=== PATIENT | female | born 1970 | race Caucasian/White ===

== ENCOUNTER → 2022-04-09 16:35 | Outpatient (CLI) | payer OTHER, BC, SELFPAY ==
--- NOTE | 2022-04-09 | DI.CT.S_ITS ---
PROCEDURE: CT ABDOMEN PELVIS W CON INDICATIONS: LLQ PAIN ON/OFF FEVER TECHNIQUE: After the administration of oral and IV contrast, axial sections were acquired from the lung bases to the pubic symphysis. Coronal and sagittal reformats were performed. For radiation dose reduction, the following was used: automated exposure control, adjustment of mA and/or kV according to patient size. COMPARISON: None. FINDINGS: Image quality: Excellent. Lung bases: A small benign calcified granuloma is seen in the central right lung base. Heart: No significant findings. ABDOMEN: Liver: Unremarkable. Gallbladder: Unremarkable. Biliary ducts: Unremarkable. Pancreas: Unremarkable. Spleen: Unremarkable. Adrenal Glands: Unremarkable. Kidneys and Ureters: Unremarkable. Stomach and Bowel: Small hiatal hernia. Small and large bowel loops are unremarkable. Peritoneum: No abnormal intraperitoneal fluid. No free air. Ventral Wall: No hernia. Abdominal Nodes: No retroperitoneal or mesenteric adenopathy by size criteria. Vessels: Aorta and inferior vena cava are normal in size. PELVIS: Pelvic Organs: Status post hysterectomy. A small oval fluid attenuation lesion is seen in the left pelvis measuring 1.5 x 1.0 cm (72/2) that may represent a small seroma or lymphocele. No significant enhancement or associated fat stranding is seen. Ovaries are symmetric in size. Bladder: Unremarkable. Pelvic Nodes: No enlarged lymph nodes. Miscellaneous: No inguinal hernias are seen. Bones: Multilevel mild degenerative changes are seen in the spine. IMPRESSION: 1. No acute abnormality identified in the abdomen or pelvis to account for the reported symptoms. 2. Nonspecific 1.5 cm oval fluid collection in the left pelvis near the hysterectomy site is of uncertain etiology, but is likely benign. Differential considerations include a benign seroma or lymphocele versus less likely abscess, necrotic lymph node, or other etiology. A pelvic MRI with and without contrast could be obtained for further evaluation if indicated clinically. Dictated by: Hayes Huizar M.D. on 04/09/2022 at 17:59 Approved by: Hayes Huizar M.D. on 04/09/2022 at 18:07
== END ==
PROVIDERS: Referring Provider Internal Medicine; Visit Provider Internal Medicine
DX: R10.32 Left lower quadrant pain (principal); R50.9 Fever, unspecified; K44.9 Diaphragmatic hernia without obstruction or gangrene; Z90.710 Acquired absence of both cervix and uterus
CPT/HCPCS: 74177; Q9967

== ENCOUNTER → 2022-04-18 09:39 | Outpatient (CLI) | payer OTHER, BC, SELFPAY ==
--- NOTE | 2022-04-18 09:41 | DI.MRI.S_ITS ---
PROCEDURE: MR PELVIS WO/W CON INDICATIONS: Fluid collection seen on CT TECHNIQUE: Coronal HASTE, sagittal breath-hold T2 FSE; axial T1 FSE with and without fat saturation through the pelvis. Optional long- and short-axis uterine nonbreath-hold T2 FSE through the uterus. Sagittal or axial dynamic VIBE during administration of contrast. Post-contrast axial or coronal VIBE/2-D FLASH with fat saturation from the iliac crests to the symphysis. Optional diffusion weighted imaging and ADC may be performed. COMPARISON: [facility], CT, CT ABDOMEN PELVIS W CON, 04/09/2022, 17:04. FINDINGS: Image quality: Excellent. Uterus: Surgically absent. Vaginal cuff is unremarkable. There is a trace T2 hyperintense fluid in the pelvic cul-de-sac. Adnexa: Right adnexal T2 homogeneous hyperintense cyst measuring 2.3 cm, (2/). Cyst in the left lateral pelvis which could also be of ovarian origin measuring 1.1 cm. This corresponds to the finding on prior CT. This cyst is T2 hyperintense, T1 hypointense, no internal fat density, and no enhancement. No restricted diffusion. Urinary system: Bladder wall is normal in thickness. Distal ureters are non distended. Urethra appears normal in morphology. Nodes and vessels: No pelvic or inguinal adenopathy by size criteria. Iliac vessels are normal in size. Bowel and peritoneum: No pathologic free pelvic fluid. Inferior colon and small bowel loops are normal in caliber. Soft tissues: No inguinal hernias. No findings of pelvic floor incompetence in the absence of provocation. Bones: Marrow demonstrates normal overall signal. IMPRESSION: 1. No mass or suspicious enhancement. No adenopathy. 2. Small benign adnexal cysts. 3. Trace free fluid in the pelvic cul-de-sac has a benign appearing and is likely physiologic. 4. Post hysterectomy. Dictated by: Ranjan Strickland M.D. on 04/19/2022 at 9:55 Approved by: Ranjan Strickland M.D. on 04/19/2022 at 10:05
== END ==
PROVIDERS: PCP Internal Medicine; Referring Provider Internal Medicine; Visit Provider Internal Medicine
DX: R93.5 Abnormal findings on diagnostic imaging of other abdominal regions, including retroperitoneum (principal); N94.89 Other specified conditions associated with female genital organs and menstrual cycle; Z90.710 Acquired absence of both cervix and uterus
CPT/HCPCS: 72197

== ENCOUNTER → 2022-11-26 12:56 | Outpatient (CLI) | payer OTHER, BC, SELFPAY ==
[2022-11-26 13:59] LABS: BUN Creatinine Ratio 16.7 (6-22); Blood Urea Nitrogen 9 mg/dL (7-17); Estimated Glomerular Filt Rate > 60 mL/min (>60)
== END ==
PROVIDERS: PCP Internal Medicine; Referring Provider Physician Assistant Medical; Visit Provider Physician Assistant Medical
DX: R31.0 Gross hematuria (principal)
CPT/HCPCS: 36415; 82565; 84520

== ENCOUNTER → 2022-11-26 14:41 | Outpatient (CLI) | payer OTHER, BC, SELFPAY ==
--- NOTE | 2022-11-26 14:50 | DI.CT.S_ITS ---
PROCEDURE: CT ABDOMEN PELVIS WO/W CON INDICATIONS: Gross hematuria TECHNIQUE: Optional 5 mm thick noncontrast images acquired from the diaphragm to the symphysis pubis. After the administration of intravenous contrast, 5 mm thick images acquired from the diaphragm to the symphysis pubis after a 10-minute delay. 2 mm thick coronal and sagittal reformats were then performed of the kidneys and ureters. For radiation dose reduction, the following was used: automated exposure control, adjustment of mA and/or kV according to patient size. COMPARISON: [facility], CT, CT ABDOMEN PELVIS W CON, 04/09/2022, 17:04. [facility], MR, MR PELVIS WO/W CON, 04/18/2022, 10:19. FINDINGS: Image quality: Excellent. Lung bases: Lung bases are clear. Heart size is normal. Urinary system: Both kidneys are normal in size, without hydronephrosis or nephrolithiasis on pre-contrast images. No perinephric fat stranding. There is normal bilateral renal enhancement. Renal calyces appear normal in morphology when filled with contrast. Opacified portions of both ureters demonstrate normal caliber. Bladder wall thickness is normal. No calcified bladder stones. Note is made of minimal asymmetry of the soft tissues immediately adjacent to the ureteral insertion through the bladder wall on the right, at the inferior tip of the ureteral insertion. A mass in this area is not seen but the soft tissue is slightly more prominent on the right than the left, a finding of doubtful clinical significance Other solid organs: Liver is normal in size and enhancement. Gallbladder appears normal . Biliary system is non dilated. Pancreas enhances normally. Spleen is normal in size and enhancement. No adrenal nodules. Peritoneum and bowel: Bowel loops demonstrate normal wall thickness and caliber. No free fluid or air. Nodes and vessels: No retroperitoneal or mesenteric adenopathy by size criteria. Aorta and inferior vena cava are normal in size. Abdominal wall: No ventral hernias. Pelvis: No pathologic free pelvic fluid. No inguinal hernias or adenopathy. Bones: No suspicious bony lesions. No vertebral body compression fractures. IMPRESSION: A definite source of hematuria is not found. No urinary tract stone, renal cortical mass, or definite urothelial mass is seen. As discussed above at the inferior margin of the far distal ureteral orifice on the right there is a minimal degree of asymmetric soft tissue, right greater than left, but certainly within the range of normal variation. Please note that CT scanning is relatively insensitive for detecting plaque-like urothelial neoplasm and for this reason continued close clinical follow-up is recommended and if hematuria persists cystoscopy and consideration of retrograde urothelial evaluation may be warranted. Dictated by: Kyle Hayward M.D. on 11/26/2022 at 16:28 Approved by: Kyle Hayward M.D. on 11/26/2022 at 16:36
== END ==
PROVIDERS: PCP Nurse Practitioner; Referring Provider Physician Assistant Medical; Visit Provider Physician Assistant Medical
DX: R31.0 Gross hematuria (principal)
CPT/HCPCS: 36415; 74178; 82565; 84520

== ENCOUNTER → 2022-12-09 09:51 | Outpatient (CLI) | payer OTHER, BC, SELFPAY ==
--- NOTE | 2022-12-09 | DI.US.S_ITS ---
PROCEDURE: US PELVIC COMPLETE INDICATIONS: HISTORY OF OVARIAN CYST TECHNIQUE: Real-time scanning was performed of the pelvic organs, with image documentation. Additional endovaginal scanning was necessary due to incomplete visualization of the adnexal and endometrial structures by transabdominal scanning. COMPARISON: [facility], MR, MR PELVIS WO/W CON, 04/18/2022, 10:19. [facility], CT, CT ABDOMEN PELVIS WO/W CON, 11/26/2022, 14:59. FINDINGS: Uterus: Status post hysterectomy. Ovaries: The right ovary measures 2.6 x 1.7 x 1.9 cm, with a calculated ovarian volume of 4.5 cc. The left ovary is not well visualized. A 1.5 x 1.9 x 1.5 cm simple cyst is seen in the left ovary. A 1.3 x 1.1 x 10.9 cm left adnexal cyst is seen. Other: No pathologic free abdominal or pelvic fluid. IMPRESSION: 1. Right ovarian simple cyst has decreased in size when compared to the prior MRI from 04/18/2022. 2. Stable small simple left adnexal cyst. Left ovary is not well visualized. 3. Status post hysterectomy. We strive to produce accurate, complete, and clear reports of imaging services. To assist us in improving patient care, this report was composed using standard report templates and voice recognition software. Therefore, it may contain abnormal punctuation, insertions and/or omissions. Occasional wrong-word or sound-alike substitutions may occur. Though we review the report and make efforts to correct it, we do recommend that the report be read carefully in proper context to recognize any text inaccuracies. Approved by: Hayes Huizar M.D. on 12/09/2022 at 11:48
== END ==
PROVIDERS: PCP Nurse Practitioner; Referring Provider Nurse Practitioner; Visit Provider Nurse Practitioner
DX: N83.291 Other ovarian cyst, right side (principal); N94.89 Other specified conditions associated with female genital organs and menstrual cycle; Z90.710 Acquired absence of both cervix and uterus
CPT/HCPCS: 76830; 76856; 93976